=== PATIENT | female | born 1995 | race Caucasian/White ===

== ENCOUNTER 2016-03-31 19:34 | Emergency (ER) | payer BC ==
[2016-03-31] MEDS ORDERED: KETOROLAC 30 MG/ML VIAL ONE (20:40)
[2016-03-31] MEDS ORDERED: TDaP 0.5 ML VIAL IM.VACC ONE (20:41)
[2016-03-31] MEDS ORDERED: LIDOCAINE 1% MDV 20 ML ONE (21:23)
[2016-03-31] MEDS ORDERED: CEFTRIAXONE 1 GM VIAL ONE (21:23)
[2016-03-31] MEDS ORDERED: MORPHINE 4 MG/ML SYR ONE ×2 (22:15→23:03)
== END 2016-03-31 23:59 | disposition other institution (70) ==
LOC: FASTR 19:34
DX: S91.002A Unspecified open wound, left ankle, initial encounter (principal); Z23 Encounter for immunization
CPT/HCPCS: 90471; 96372